=== PATIENT | male | born 1975 | race Caucasian/White ===

== ENCOUNTER 2016-04-25 15:01 | Emergency (ER) | payer OTHER ==
[~2016-04-25 15:01] MED LIST: ADVIL PO; AMOXIL875 PO; CORTEF20 MG PO; IMOD PO; NEUR600 PO; VENTOLIN HFA INH; VIBRATAB100 MG PO; [UNRECOGNIZED DRUG - OTHER] PO
[2016-04-25 19:12] LABS: BASOPHILS 0.5 %; BASOPHILS ABSOLUTE 0.03 10/3/uL (0.0-0.16); EOSINOPHILS 6.7 %; EOSINOPHILS ABSOLUTE 0.43 10/3/uL (0.0-0.53); ER CBC TAT 0 Hrs 05 Mins; IMMATURE GRANULOCYTES 0.2 %; IMMATURE GRANULOCYTES ABSOLUTE 0.01 10/3/uL (0.0-0.11); LYMPHOCYTES 44.9 %; LYMPHOCYTES ABSOLUTE 2.88 10/3/uL (0.67-4.30); MEAN CORPUSCULAR VOLUME 86.9 fL (80-100); MEAN PLATELET VOLUME 10.3 fL (9.2-13.0); MONOCYTES 8.7 %; MONOCYTES ABSOLUTE 0.56 10/3/uL (0.21-1.20); RBC DISTRIBUTION WIDTH 14.4 % (12.0-16.0); WHITE BLOOD CELLS 6.4 10/3/uL (4.5-10.5)
[2016-04-25 19:14] LABS: HEMATOCRIT 47.1 % (40.0-51.0); HEMOGLOBIN 16.8 g/dL (13.6-17.8); MANUAL DIFF NO %; MEAN CORPUS HGB CONC 35.7 g/dL (32.0-36.0); PLATELET COUNT 272 10/3/uL (150-400); RED CELL COUNT 5.42 10/6/uL (4.7-6.1)
[2016-04-25 19:25] LABS: CHLORIDE, SERUM 103 MMOL/L (96-112); CO2 (CARBON DIOXIDE) 28 MMOL/L (24-34); GFR AFRICAN AMERICAN 124 ML/MIN (>=60); GFR NON AFRICAN AMERICAN 107 ML/MIN (>=60)
[2016-04-25 19:26] LABS: SODIUM, SERUM 140 MMOL/L (135-148)
[2016-04-25 19:27] LABS: BUN (BLOOD UREA NITROGEN) 13 MG/DL (6-23); GLUCOSE, SERUM 91 MG/DL (60-99); POTASSIUM, SERUM 4.2 MMOL/L (3.5-5.3)
== END 2016-04-25 20:30 | disposition home or self-care (01) ==
LOC: ER 15:01
PROVIDERS: Physician Assistant
DX: E27.40 Unspecified adrenocortical insufficiency (principal); F17.200 Nicotine dependence, unspecified, uncomplicated; Z79.899 Other long term (current) drug therapy
CPT/HCPCS: 80048; 85025; 96374; 99285